=== PATIENT | female | born 1965 | race Caucasian/White ===

== ENCOUNTER → 2017-05-19 | Outpatient (CLI) | payer OTHER ==
--- NOTE | 2017-05-19 16:56 | US ---
EXAMINATION TYPE: US kidneys/renal and bladder DATE OF EXAM: 05/19/2017 COMPARISON: NONE CLINICAL HISTORY: R31.29 Microscopic hematuria. EXAM MEASUREMENTS: Right Kidney: 13.0 x 6.4 x 5.3 cm Left Kidney: 11.6 x 5.1 x 5.8 cm *Technical limitations due to patient's body habitus and large amount of overlying bowel content Right Kidney: visualized portions show no evidence of hydronephrosis Left Kidney: visualized portions show no evidence of hydronephrosis Bladder: not fully distended Bilateral Jets seen: no Incidental finding: cholelithiasis IMPRESSION: No evidence of renal mass or obstruction. Urinary bladder appears within normal limits.
== END | disposition home or self-care (01) ==
LOC: RADUSWWP 16:22
PROVIDERS: ATTEND Family Medicine
DX: R31.29 Other microscopic hematuria (principal)
CPT/HCPCS: 76770

== ENCOUNTER → 2018-05-24 | Outpatient (CLI) | payer OTHER ==
--- NOTE | 2018-05-26 13:21 | MM ---
Reason for exam: screening (asymptomatic). Last mammogram was performed 2 years ago. History: Patient is postmenopausal. Family history of breast cancer in sister at age 32. Physical Findings: A clinical breast exam by your physician is recommended on an annual basis and results should be correlated with mammographic findings. MG Screening Mammo w CAD Bilateral CC and MLO view(s) were taken. Prior study comparison: May 12, 2016, bilateral MG screening mammo w CAD. May 08, 2015, bilateral MG screening mammo w CAD. No significant changes when compared with prior studies. ASSESSMENT: Benign, BI-RAD 2 RECOMMENDATION: Routine screening mammogram of both breasts in 1 year.
== END | disposition home or self-care (01) ==
LOC: RADMAMWWP 13:32
PROVIDERS: ATTEND Family Medicine
DX: Z12.31 Encounter for screening mammogram for malignant neoplasm of breast (principal)
CPT/HCPCS: 77067

== ENCOUNTER → 2018-06-15 | Outpatient (CLI) | payer OTHER | END | disposition home or self-care (01) | LOC: LABPAT 13:16 | PROVIDERS: ATTEND Orthopaedic Surgery | DX: Z01.812 Encounter for preprocedural laboratory examination (principal) | CPT/HCPCS: 87070 ==

== ENCOUNTER 2018-06-27 07:26 | Inpatient (IN) | payer OTHER ==
[2018-06-20 10:10] VITALS: BMI 43.5
--- NOTE | 2018-06-26 21:48 | HP ---
HISTORY AND PHYSICAL DATE OF SURGERY: 06/27/2018 Darling Fenton is a 52-year-old patient seen with symptomatic right knee osteoarthritis. After treatment options were discussed, she elected to proceed with right total knee arthroplasty. Consent regarding the procedure was obtained. Medical clearance was provided by . PAST MEDICAL HISTORY: Hyperlipidemia, hypertension, edp-xmvtrzd-akpspzmak diabetes. PAST SURGICAL HISTORY: Tubal ligation, section. DAILY MEDICATIONS: Aspirin, atorvastatin, benazepril, gabapentin, sertraline. ALLERGIES: None reported. SOCIAL HISTORY: Patient currently smokes 1/2 pack cigarettes daily. PHYSICAL EXAMINATION: Physical evaluation of right knee: Range of motion is negative 2 to 110 degrees. Tenderness medial and lateral joint lines. Positive medial Jaja's. Crepitance medial and patellofemoral compartments with range of motion. Pain with patellofemoral compression. Ligaments are stable. Hip rotation is without pain. Distal neurovascular exam is intact. RADIOGRAPHS: Radiographs of the right knee reveal severe osteoarthritic changes. IMPRESSION: 1. Right knee osteoarthritis. 2. Hypertension. 3. Hyperlipidemia. 4. Kzd-uwcclyj-tujvjxtph diabetes. PLAN: Right total knee arthroplasty. MMODL / IJN: [id number] /
[~2018-06-27 07:26] MED LIST: ACETAMINOPHEN TAB 500 MG TAB PO ONE; DEXAMETHASONE SOD PHOSPHATE 10 MG/ML 1 ML VIAL IV ONE; LIDOCAINE 1% 20 ML VIAL (10MG/ML) FOR IV START INTRADERMA PRN; MELOXICAM 7.5 MG TAB PO ONE; MIDAZOLAM 2 MG/2 ML VIAL IV PRN; ONDANSETRON 4 MG/2 ML VIAL IVP ONE; TRANEXAMIC ACID 1,000 MG in SODIUM CHLORIDE 0.9% 50 ML IVPB ONE; ceFAZolin IN SWFI 2 GM/20 ML SYRINGE IVP ONE; fentaNYL (PF) 50 MCG/ML 2 ML AMP IV PRN
[2018-06-27] MEDS: LACTATED RINGERS 1,000 ML IV SCH ×2 (08:46→23:46)
[2018-06-27 08:52] LABS: Glucose,Whole Blood 125 mg/dL (75-99)
[2018-06-27] MEDS ORDERED: ROPIVACAINE 246.25 MG, EPINEPHrine 0.5 MG, KETOROLAC 30 MG, cloNIDine HCL/PF 80 MCG, WA... MISCELLANE ONE ×5 (09:03)
[2018-06-27] MEDS ORDERED: PROPOFOL 10 MG/ML 20 ML VIAL IV ONE (09:52)
[2018-06-27] MEDS ORDERED: MIDAZOLAM 2 MG/2 ML VIAL ONE (09:52)
[2018-06-27] MEDS ORDERED: fentaNYL (PF) 50 MCG/ML 2 ML AMP ONE (09:52)
[2018-06-27] MEDS ORDERED: SODIUM CHLORIDE 0.9% 100 ML BAG ONE (09:52)
[2018-06-27] MEDS ORDERED: TRANEXAMIC ACID 1,000 MG/10 ML VIAL ONE (09:52)
[2018-06-27] MEDS ORDERED: ceFAZolin 3,000 MG in SODIUM CHLORIDE 0.9% IRRIGATIO 3,000 ML IRRIGATION ONE (10:30)
[2018-06-27] MEDS ORDERED: ROPIVACAINE 1,100 MG, SODIUM CHLORIDE 0.9% 500 ML 330 ML MISCELLANE PRN ×2 (10:48)
--- NOTE | 2018-06-27 10:54 | P.ONQ ---
Anesthesiology Proc Note - PNB - Peripheral Nerve Block Performed Right Adductor Canal Infusion Time Out Performed: Yes Procedure Start Time: 09:00 Procedure Stop Time: 09:12 Indication: Acute Post-Operative Pain, Requested by physician Sedation Type: Sedate with meaningful contact maintained Preparation: Sterile Dressing Position: Supine Catheter Depth at Skin (cm): 4 Catheter: Indwelling Needle Types: On-Q Needle Size: 100mm (4") Needle Gauge: 20 Technique: Ultrasound Injectate: 0.5% Ropivacaine (see comment for volume) Blood Aspirated: No Pain Paresthesia on Injection Noted: No Resistance on Injection: Normal Events: Uneventful and Well Tolerated (20ml ropivicaine 0.5% infiltrated)
--- NOTE | 2018-06-27 11:47 | P.OP ---
Date of Procedure: 06/27/18 Preoperative Diagnosis: Right knee osteoarthritis Postoperative Diagnosis: Right knee osteoarthritis Procedure(s) Performed: Right total knee arthroplasty Implants: 1. Depuy attune size 5 narrow right cruciate retaining cemented femur 2. Depuy attune persona size 4 fixed cemented tibial baseplate 3. Depuy attune 5 mm fixed bearing cruciate retaining polyethylene tibial insert 4. Depuy attune 35 mm all polyethylene cemented patella Anesthesia: regional (Adductor canal catheter), local, spinal Surgeon: Louis Salazar Prenatal Nurse #1: Mason Solis Estimated Blood Loss (ml): 60 Pathology: other (Bone) Condition: stable Disposition: PACU Indications for Procedure: 52-year-old patient seen with symptomatically right knee osteoarthritis. After having treatment options discussed, she elected to proceed with right total knee arthroplasty. Operative Findings: See description of procedure Description of Procedure: Patient was taken to the operative suite after having an adductor canal catheter placed by the department of anesthesia for postoperative pain control. Patient underwent a spinal anesthetic by the department of anesthesia. Patient was given preoperative IV intake antibiotics and TXA. A well-padded tourniquet was placed about the right lower extremity. The lower extremity was then prepped and draped in the normal sterile orthopedic fashion. The extremity was elevated, a tourniquet was insufflated to 300. A standard anterior incision was made sharply through skin. Dissection was taken down through the subcutaneous soft tissues down to the extensor mechanism. A medial arthrotomy was performed, patella was everted and knee was flexed. There was advanced osteoarthritis noted. I introduced my distal intramedullary femoral drill. I then introduced the distal femoral cutting jig. Yasir WORLEY secured the cutting jig with 2 pins. I held retractors in position while Yasir WORLEY performed the distal femoral resection through the guide area we now removed her distal femoral cutting guide. We now placed our 4-in-1 femoral cutting block and positioned and it was secured with 2 pins by Yasir WORLEY while I held the block in position. The distal femoral finishing was now completed. A proximal tibial cutting guide was positioned. I held the guide in the appropriate position with both hands well Yasir WORLEY inserted stabilizing pins into the guide. Proximal tibial cut was made. We now placed a trial femoral component into position, along with an appropriate size tibial tray and insert. We now took the knee through range of motion and had full extension good flexion and good overall soft tissue balance noted. The patella was everted and stabilized with 2 towel clips held by Yasir WORLEY while I performed a flush with patellar quad tendon utilizing a fresh sawblade. We templated the patella, appropriate drill holes were made. An appropriate trial patella was positioned, knee was taken through full range of motion with the patella tracking very nicely. The trial patella was removed. Drill holes were made through the femoral component. All trial components were removed after marking off the appropriate rotation of the tibia. Retractors were now positioned along the proximal tibia. An appropriate keel punch was made with the appropriate size tibial guide by myself on Yasir WORLEY assisted by holding retractors. At this point appropriate size implants were chosen and opened. The joint was irrigated copiously with pulse lavage mechanical irrigation. The posterior capsule was infiltrated with local analgesic. The wound was irrigated with pulse lavage mechanical irrigation. We mixed antibiotic methylmethacrylate. We placed the knee into flexion. We placed multiple retractors assisted by Yasir WORLEY to expose the proximal tibia. Once the methyl methacrylate was ready, the tibial component was cemented into place removing any excess methylmethacrylate form by both myself and Yasir WORLEY. The femoral component was cemented into place removing the removing any excess methylmethacrylate performed by both myself and Yasir WORLEY. We then inserted the appropriate size polyethylene tibial insert. We made sure that it was locked into position. We took the knee into full extension, and then back in a flexion making sure we had removed any excess methylmethacrylate. The patellar component was then cemented down and secured with clamp. Excess methylmethacrylate removed. We kept the knee in full extension, patellar clamp in position until methylmethacrylate had hardened. Once it had hardened the patellar clamp was removed. The knee was taken through full range of motion. The patella tracked nicely. There was good soft tissue balancing. The tourniquet was now released. Additional hemostasis was achieved via electrocautery. A second gram of TXA was given. The wound again was irrigated with pulse lavage mechanical irrigation. The superficial soft tissues were infiltrated local analgesic. The extensor mechanism was repaired with Vicryl. We checked the repair with range of motion and it was stable. The subcutaneous soft tissues were repaired with Vicryl in layers. The skin was approximated with pernio/Dermabond. Sterile dressings were applied followed by loose web roll and Walter bandage. The patient was transferred to a bed, and taken to recovery in stable and satisfactory condition. Yasir WORLEY assisted with this complex procedure.
[2018-06-27] MEDS ORDERED: HYDROcodone/APAP 5-325MG 1 EACH TAB PO PRN (11:52)
[2018-06-27] MEDS ORDERED: HYDROmorphone 1 MG/ML 1 ML SYRINGE IVP PRN ×3 (11:52)
[2018-06-27] MEDS ORDERED: hydrOXYzine PAMOATE 25 MG CAP PO PRN (11:52)
[2018-06-27] MEDS ORDERED: NALOXONE 0.4 MG/ML 1 ML VIAL IV PRN (11:52)
[2018-06-27] MEDS ORDERED: ONDANSETRON 4 MG/2 ML VIAL IVP PRN (11:52)
--- NOTE | 2018-06-27 12:45 | XR ---
EXAMINATION TYPE: XR knee limited RT DATE OF EXAM: 06/27/2018 CLINICAL HISTORY: Postoperative evaluation Two views of the right knee are submitted. Identified are changes of total knee arthroplasty with femoral and tibial components appearing well seated. Postsurgical soft tissue changes are noted. Alignment is anatomic.
--- NOTE | 2018-06-27 15:35 | P.CONS ---
History of Present Illness - Reason for Consult Consult date: 06/27/18 Medical management of hypertension and COPD, obstructive sleep apnea hyperl Requesting physician: Louis Salazar - Chief Complaint Medical management - History of Present Illness The patient is a 52-year-old obese female was admitted to Dr. Bolaños orthopedic service and is currently postop day #0 status post right total knee arthroplasty secondary to severe right knee osteoarthritis, were consulted for medical management for patient's chronic medical conditions including essential hypertension, anxiety depression, COPD, obstructive sleep apnea on CPAP therapy at 11 cm of H20 pressure and dyslipidemia, CHF unknown type The patient reports mild right anterior knee pressure and has limited range of motion due to pain. She otherwise has no complaints, she denies chest pain, shortness of breath, cough, lightheadedness, dizziness, focal weakness, or significant lower extremity swelling. Patient does have a long history of smoking currently smokes a pack per day, she denied needing any nicotine patch. The patient reported that she did not take her morning meds today. Review of records indicates the patient is receiving perioperative antibiotics with cefazolin and also received spinal and local anesthesia Review of Systems Pertinent positives per HPI, all other review of systems otherwise negative Past Medical History Past Medical History: Hyperlipidemia, Hypertension Additional Past Medical History / Comment(s): Neuropathy bilateral legs, Restless Leg Syndrome, CPAP use, hx CHF X1 early , hx pneumonia X2, last 10 yrs ago, "borderline Diabetic, not on any medications, not checking sugars or doing anything for it." History of Any Multi-Drug Resistant Organisms: None Reported Past Surgical History: Section, Tubal Ligation Additional Past Surgical History / Comment(s): cleft lip and palate, ELIZA carpal tunnel Past Anesthesia/Blood Transfusion Reactions: No Reported Reaction Past Psychological History: Anxiety, Depression Smoking Status: Current every day smoker Past Alcohol Use History: None Reported, Rare Additional Past Alcohol Use History / Comment(s): Has been smoking 35 yrs, 1/2 PPD or less. Past Drug Use History: None Reported - Past Family History Mother Family Medical History: Cancer, Deep Vein Thrombosis (DVT) Sister(s) Family Medical History: Cancer Additional Family Medical History / Comment(s): Breast cancer with Mets Brother(s) Family Medical History: Diabetes Mellitus, Hyperlipidemia, Hypertension Additional Family Medical History / Comment(s): Pacemaker Medications and Allergies Home Medications Medication Instructions Recorded Confirmed Type Albuterol Nebulized (Conc) 1 applicate INHALATION QID PRN 07/14/14 06/27/18 History [Ventolin Nebulized (Conc)] Aspirin 325 mg PO 1300 07/14/14 06/20/18 History Benazepril [Lotensin] 20 mg PO 1300 07/14/14 06/20/18 History Melatonin 5 mg PO HS 07/14/14 06/20/18 History Sertraline HCl 100 mg PO 1300 07/14/14 06/20/18 History Albuterol Inhaler [Ventolin Hfa 1 - 2 puff INHALATION RT-Q6H PRN 06/20/18 History Inhaler] Atorvastatin [Lipitor] 40 mg PO HS 06/20/18 06/20/18 History Gabapentin [Neurontin] 100 mg PO BID 06/20/18 06/20/18 History Gabapentin [Neurontin] 200 mg PO HS 06/20/18 06/20/18 History Ibuprofen 800 mg PO BID PRN 06/20/18 06/20/18 History Vitamin D 1.25 mg PO MO 06/20/18 06/20/18 History rOPINIRole HCL 0.5 mg PO HS 06/20/18 06/20/18 History Metoprolol Tartrate [Lopressor] 25 mg PO ONCE 06/27/18 06/27/18 History Allergies Allergy/AdvReac Type Severity Reaction Status Date / Time morphine Allergy Unknown Verified 06/27/18 08:17 Physical Exam Vitals: Vital Signs Temp Pulse Pulse Resp BP BP Pulse Ox 06/27/18 14:54 97.6 F 90 16 158/71 96 06/27/18 14:15 70 16 99/58 93 L 06/27/18 13:42 67 16 91/55 93 L 06/27/18 12:45 65 14 102/59 92 L 06/27/18 12:30 69 16 97/51 93 L 06/27/18 12:15 72 16 98/53 95 06/27/18 12:03 97.2 F L 73 16 102/54 92 L 06/27/18 09:46 119/63 06/27/18 09:37 73 95 06/27/18 08:47 95 06/27/18 08:08 974 F H 94 20 153/69 Intake and Output 06/27/18 06/27/18 06/27/18 06:59 14:59 22:59 Intake Total 801 Output Total 60 300 Balance 741 -300 Intake: IV 801 Output: Urine 300 Estimated Blood Loss 60 Other: Voiding Method Toilet Weight 111.584 kg Constitutional: No acute distress, conversant, pleasant Eyes: Anicteric sclerae, moist conjunctiva, no lid-lag, PERRLA ENMT: NC/AT,Oropharynx clear, no erythema, exudates Neck:Supple, FROM, no masses, or JVD, No carotid bruits; No thyromegaly Lungs: Clear to auscultation, Clear to percussion, Normal respiratory effort, no accessory muscle use Cardiovascular: Heart regular in rate and rhythm, No murmurs, gallops, trace bilateral lower pitting extremity edema Abdominal: Soft Nontender, nom distended, no guarding, no rebound or rigidity, Normoactive bowel sounds No hepatomegaly, No splenomegaly, No palpable mass No abdominal wall hernia noted Skin: Normal temperature, tone, texture, turgor, No induration No subcutaneous nodules, No rash, lesions, No ulcers Extremities: Right knee bandaged, able to wiggle, toes neurovascularly intact, Psychiatric: Alert and oriented to person, place and time, Appropriate affect Intact judgement Neuro: Muscles Strength 5/5 in all 4 extremities, Sensation to light touch grossly present throughout, Cranial nerves II-XII grossly intact. No focal sensory deficits Results Labs: Abnormal Lab Results - Last 24 Hours (Table) 06/27/18 Range/Units 08:38 POC Glucose (mg/dL) 125 H (75-99) mg/dL Assessment and Plan (1) COPD (chronic obstructive pulmonary disease) Current Visit: Yes Status: Acute Code(s): J44.9 - CHRONIC OBSTRUCTIVE PULMONARY DISEASE, UNSPECIFIED SNOMED Code(s): 14154712 (2) Essential hypertension Current Visit: Yes Status: Acute Code(s): I10 - ESSENTIAL (PRIMARY) HYPERTENSION SNOMED Code(s): 26489813 (3) Obstructive sleep apnea Current Visit: Yes Status: Acute Code(s): G47.33 - OBSTRUCTIVE SLEEP APNEA ( ADULT) (PEDIATRIC) SNOMED Code(s): 82116928 (4) CHF (congestive heart failure) Current Visit: Yes Status: Acute Code(s): I50.9 - HEART FAILURE, UNSPECIFIED SNOMED Code(s): 39840211 (5) Depression with anxiety Current Visit: Yes Status: Acute Code(s): F41.8 - OTHER SPECIFIED ANXIETY DISORDERS SNOMED Code(s): 61396867 (6) Hyperlipidemia Current Visit: Yes Status: Acute Code(s): E78.5 - HYPERLIPIDEMIA, UNSPECIFIED SNOMED Code(s): 52802582 (7) Osteoarthritis of right knee Current Visit: Yes Status: Acute Code(s): M17.11 - UNILATERAL PRIMARY OSTEOARTHRITIS, RIGHT KNEE SNOMED Code(s): 278935590706885 (8) Status post total right knee replacement Current Visit: Yes Status: Acute Code(s): Z96.651 - PRESENCE OF RIGHT ARTIFICIAL KNEE JOINT SNOMED Code(s): 4530484945481 Plan: The patient is admitted for right total knee arthroplasty secondary to severe right knee osteoarthritis hence we'll defer to primary team regarding postop analgesic therapy. she is doing well postop. Initially the patient was borderline hypotensive but was asymptomatic likely secondary to spinal anesthesia, most recent blood pressure indicates that its's trending up hence we 'll plan to proceed to restart all of her home medications now. Patient COPD, and CHF unknown type seems to be stable without any acute exacerbation at this time. The patient is able to use her home CPAP while sleeping at night. We'll continue to follow her clinical course I Appreciate opportunity the to be involved ongoing care of this patient. For further questions or concerns please do not hesitate to contact the sound inpatient team
[2018-06-27] MEDS ORDERED: ALBUTEROL NEBULIZED 2.5 MG/3 ML INHALATION PRN (15:36)
[2018-06-27] MEDS: GABAPENTIN 100 MG CAP PO SCH ×2 (17:40→22:07)
[2018-06-27] MEDS: ALBUTEROL NEBULIZED 2.5 MG/3 ML INHALATION PRN (21:48)
[2018-06-27] MEDS: SENNOSIDES-DOCUSATE SODIUM 1 EACH TAB PO SCH (22:06)
[2018-06-27] MEDS: traMADol 50 MG TAB PO PRN (22:06)
[2018-06-27] MEDS: ceFAZolin IN SWFI 2 GM/20 ML SYRINGE IVP SCH (22:08)
[2018-06-27] MEDS: MELATONIN 5 MG TABLET PO SCH (22:08)
[2018-06-27] MEDS: ENOXAPARIN 30 MG/0.3 ML SYRINGE SQ SCH (22:08)
[2018-06-27] MEDS: ATORVASTATIN 40 MG TAB PO SCH (22:17)
[2018-06-28] MEDS: ceFAZolin IN SWFI 2 GM/20 ML SYRINGE IVP SCH (04:53)
[2018-06-28] MEDS: HYDROcodone/APAP 5-325MG 1 EACH TAB PO PRN ×3 (04:53→23:44)
[2018-06-28 07:45] LABS: Basophils % (A) 0 %; Eosinophils # (A) 0.1 k/uL (0-0.7); Eosinophils % (A) 1 %; HCT 33.4 % (34.0-46.0); HGB 11.4 gm/dL (11.4-16.0); Lymphocytes # (A) 1.6 k/uL (1.0-4.8); Lymphocytes % (A) 17 %; MCH 30.9 pg (25.0-35.0); MCHC 34.3 g/dL (31.0-37.0); MCV 90.1 fL (80.0-100.0); Mean Platelet Volume 7.1; Monocytes % (A) 10 %; Neutrophils # (A) 6.9 k/uL (1.3-7.7); Neutrophils % (A) 71 %; Platelet Count 205 k/uL (150-450); RDW 12.6 % (11.5-15.5); WBC 9.8 k/uL (3.8-10.6)
[2018-06-28] MEDS: ALBUTEROL NEBULIZED 2.5 MG/3 ML INHALATION SCH ×3 (08:03→20:50)
[2018-06-28] MEDS: INSULIN ASPART 100 UNIT/ML 1 ML 10 ML VIAL SQ SCH ×4 (08:15→21:12)
[2018-06-28] MEDS: GABAPENTIN 100 MG CAP PO SCH ×3 (08:36→21:12)
[2018-06-28] MEDS: MELOXICAM 7.5 MG TAB PO SCH (08:36)
[2018-06-28] MEDS: ENOXAPARIN 30 MG/0.3 ML SYRINGE SQ SCH ×2 (08:36→21:12)
[2018-06-28 08:38] LABS: Glucose,Whole Blood 176 mg/dL (75-99)
--- NOTE | 2018-06-28 09:27 | CONS ---
CONSULTATION REASON FOR CONSULTATION: Advice regarding bronchitis and hypertension and other medical issues by Orthopedic Surgery. HISTORY OF PRESENT ILLNESS: This is a 52-year-old with past medical history of hypertension, hyperlipidemia, neuropathy and and history of neuropathy, history of CHF, history of pneumonia, history of diabetes being followed by Dr. Linda De Leon in the outpatient setting, underwent right total knee arthroplasty by Dr. Salazar. The patient has some minimal wheezing at this time. There is no history of fever, rigors. No headache loss of consciousness or seizures at this time. PAST MEDICAL HISTORY: History of hypertension, hyperlipidemia, history of neuropathy, anxiety, depression. MEDICATIONS PRIOR TO ADMISSION INCLUDE: 1. Requip 0.5 mg q.h.s. 2. Vitamin D 1.25 mg p.o. Wednesday. 3. Zoloft 100 mg p.o. daily. 4. Lopressor 25 mg once next melatonin 5 mg q.h.s., ibuprofen 480 mg b.i.d. p.r.n. 5. Neurontin 100 mg p.o. b.i.d. 200 mg q.h.s., Lotensin 20 mg p.o. 6. Lipitor 40 mg q.h.s. aspirin 310 mg p.o. daily. 7. Ventolin 1 puff q.i.d. p.r.n. ALLERGIES: Morphine family. FAMILY HISTORY: Of cancer, DVT, breast cancer with METS. SOCIAL HISTORY: History of smoking currently. No history of alcohol intake. REVIEW OF SYSTEMS: ENT: No diminished hearing, no diminished nutrition. CARDIOVASCULAR: No angina, as mentioned earlier. GI: No nausea. : No dysuria. NERVOUS SYSTEM: No numbness or weakness. ALLERGY/IMMUNOLOGY: No asthma or hay fever. MUSCULOSKELETAL: As mentioned earlier. HEMATOLOGY: No history anemia. ENDOCRINE: No history of diabetes hypothyroidism. CONSTITUTIONAL: As mentioned earlier. DERMATOLOGY: As mentioned earlier. PSYCHIATRY: As mentioned earlier. PHYSICAL EXAMINATION: Alert and oriented x3. Pulse 76, blood pressure 109/63, respirations 16, temperature 98 degrees, pulse ox 94% on room air. HEENT: Conjunctivae normal. Oral mucosa moist. Neck is no jugular venous distention. No lymph node enlargement. CARDIOVASCULAR SYSTEM: S1, S2. RESPIRATORY: Breath sounds diminished at the bases, few scattered rhonchi, no crackles. ABDOMEN: Soft, nontender. No mass. LEGS: Status post knee arthroplasty. NERVOUS SYSTEM: Higher functions as mentioned earlier. Moves all 4 limbs. No focal motor deficits. LYMPHATICS: No lymph node enlargement. SKIN: No ulcer, rash or bleeding. LABS: At this time shows glucose 125, the preop labs are WBC 10.7, the coags are normal and chemistry shows glucose 125. ASSESSMENT: 1. Status post right total knee arthroplasty. 2. Bronchospasm, possibly chronic obstructive pulmonary disease. 3. Hypertension. 4. Hyperlipidemia. 5. History of nicotine dependence. 6. History of peripheral neuropathy. 7. History of congestive heart failure. 8. History of pneumonia. 9. History of borderline diabetes mellitus. 10.Anxiety, depression. RECOMMENDATION: In this 52-year-old woman who presented with multiple complex medical issues, will monitor the patient closely, continue with the current medication and symptomatic treatment. Otherwise, at this time I would also recommend resume the home medications, bronchodilators. I would recommend bronchodilators t.i.d. and p.r.n. Otherwise I would also recommend Accu-Cheks a.c. and at bedtime, scale also. Will follow the patient closely with you and the patient may be asked to follow up with the primary physician after discharge. MMODL / IJN: [id number] /
[2018-06-28] MEDS: traMADol 50 MG TAB PO PRN ×2 (10:05→17:29)
[2018-06-28 11:56] LABS: Glucose,Whole Blood 105 mg/dL (75-99)
[2018-06-28] MEDS: ASPIRIN 325 MG TAB PO SCH (12:27)
[2018-06-28] MEDS: SERTRALINE 100 MG TAB PO SCH (12:27)
[2018-06-28] MEDS: MULTIVITAMINS, THERA 1 EACH TAB PO SCH (12:27)
[2018-06-28] MEDS: LISINOPRIL 20 MG TAB PO SCH (12:37)
[2018-06-28] MEDS ORDERED: HYDROmorphone 2 MG TAB PO PRN ×2 (13:17→13:18)
[2018-06-28] MEDS ORDERED: HYDROmorphone 4 MG TABLET PO PRN (13:18)
--- NOTE | 2018-06-28 13:23 | P.PN ---
Progress Note - Text Progress Note Date: 06/28/18 Patient seen laying in bed comfortably. Patient is experiencing some discomfort but controlled with pain medication. Incision stable. Distal neurovascular exam intact. Negative Zeyad Bonilla. Impression: status post right total knee arthroplasty Plan: Pain management Increased activities as tolerated Physical therapy Discharge plan tomorrow
[2018-06-28 13:24] LABS: Hemoglobin A1C 5.8 % (4.0-6.0)
[2018-06-28] MEDS: ALBUTEROL NEBULIZED 2.5 MG/3 ML INHALATION PRN (13:40)
[2018-06-28 17:20] LABS: Glucose,Whole Blood 112 mg/dL (75-99)
[2018-06-28 20:13] LABS: Glucose,Whole Blood 127 mg/dL (75-99)
[2018-06-28] MEDS: ATORVASTATIN 40 MG TAB PO SCH (21:12)
[2018-06-28] MEDS: SENNOSIDES-DOCUSATE SODIUM 1 EACH TAB PO SCH (21:13)
[2018-06-28] MEDS: MELATONIN 5 MG TABLET PO SCH (21:13)
[2018-06-28] MEDS: LACTATED RINGERS 1,000 ML IV SCH (23:28)
[2018-06-28 23:48] VITALS: TEMP 99.3
[2018-06-29 07:00] LABS: Glucose,Whole Blood 130 mg/dL (75-99)
[2018-06-29] MEDS: INSULIN ASPART 100 UNIT/ML 1 ML 10 ML VIAL SQ SCH ×2 (07:01→13:11)
[2018-06-29] MEDS: ALBUTEROL NEBULIZED 2.5 MG/3 ML INHALATION SCH ×2 (07:27→12:27)
[2018-06-29] MEDS: GABAPENTIN 100 MG CAP PO SCH (07:28)
[2018-06-29] MEDS: MELOXICAM 7.5 MG TAB PO SCH (07:28)
[2018-06-29] MEDS: HYDROcodone/APAP 5-325MG 1 EACH TAB PO PRN (07:29)
[2018-06-29] MEDS: ENOXAPARIN 30 MG/0.3 ML SYRINGE SQ SCH (07:33)
[2018-06-29 07:42] VITALS: BP 125/74; PULSE 94; RESP 12
--- NOTE | 2018-06-29 10:01 | P.PN ---
Subjective Progress Note Date: 06/29/18 Principal diagnosis: Status post right total knee arthroplasty Patient seen today resting her hospital bed, she appears comfortable. She is ambulating well with therapy. Her pain is well-controlled. Objective - Vital Signs Vital signs: Vital Signs Temp 99.3 F 06/29/18 07:00 Pulse 92 06/29/18 07:39 Resp 12 06/29/18 07:00 BP 125/74 06/29/18 07:00 Pulse Ox 90 L 06/29/18 07:00 Intake & Output 06/28/18 06/29/18 06/29/18 18:59 06:59 18:59 Intake Total 676 360 Balance 676 360 Intake: Oral 676 360 Other: Voiding Method Toilet Toilet # Voids 1 2 - Exam Right lower extremity: Incision is clean, dry, and intact. The exofin tape in good condition. There is minimal soft tissue swelling and ecchymosis surrounding the medial and lateral aspects of the incision. Calf is soft, no tenderness with palpation. Plantar flexion, dorsiflexion, EHL, FHL are intact. Sensory exam to light touch throughout the extremity is intact, dorsal pedis pulses 2+. - Labs CBC & Chem 7: 06/28/18 06:40 Labs: Abnormal Lab Results - Last 24 Hours (Table) 06/28/18 06/28/18 06/28/18 Range/Units 11:39 17:07 20:01 POC Glucose (mg/dL) 105 H 112 H 127 H (75-99) mg/dL 06/29/18 Range/Units 06:48 POC Glucose (mg/dL) 130 H (75-99) mg/dL Assessment and Plan Plan: Assessment: Postop day #2 status post right total knee arthroplasty Plan: Pain control, we'll discharge home on oral medication GI and DVT prophylaxis, aspirin 325 mg daily Wound care instructions discussed Home physical therapy and nursing after discharge Medical recommendations Discharge planning: Patient discharged home today Time with Patient: Less than 30
--- NOTE | 2018-06-29 10:08 | P.DS ---
Providers Date of admission: 06/27/18 07:26 Expected date of discharge: 06/29/18 Attending physician: Louis Salazar Consults: 06/27/18 11:52 Consult Physician Routine Consulting Provider: Linda De Leon Reason/Comments: Medical management Do you want consulting provider notified?: Yes 06/27/18 14:44 Consult Physician Routine Consulting Provider: Austin Meredith Consult Reason/Comments: medical mangament Do you want consulting provider notified?: Yes Primary care physician: Linda De Leon Hospital Course: Date of admission: 06/27/2018 Date of discharge: 06/29/2018 Admission diagnosis: Status post right total knee arthroplasty Discharge diagnosis: Same Attending physician: Dr. Salazar Surgical procedures: Right total knee arthroplasty Brief history: Patient is a 52-year-old female with a history of progressive primary right knee osteoarthritis. At this point patient has failed conservative treatment measures and has opted to proceed with a elective right total knee arthroplasty. Hospital course: Details of patient's surgery can be found in operative report. Patient tolerated the procedure well and was subsequently transported to orthopedic floor. Patient's orthopeidc and medical care was provided daily. Patient had daily laboratory tests performed for evaluation of overall blood counts. Patient had daily physical therapy to include strengthening range of motion as well as education with walker ambulation. Patient had daily CPM usage as part of their physical therapy program. Patient was treated with Lovenox for their postoperative DVT prophylaxis during their inpatient stay. Patient was noted to have a relatively uneventful postoperative course. Patient reported satisfactory pain control with oral pain medications by postoperative day 0. Patient showed satisfactory progress with physical therapy. Patient moved steadily through the program and had no difficulty meeting the goals by postoperative day 2. Given patient's otherwise satisfactory course and having met physical therapy goals, plan is to discharge patient home on postoperative day 2. Discharge condition/disposition: Patient will be discharged home in stable condition. Discharge medications: Instructions are given on resumption of patient's normal daily medications per primary care recommendation, in addition patient will be prescribed [place] 5 mg/325 mg, tramadol 50 mg, Colace 100 mg. Discharge instructions: 1. Wound care and infection precautions, keep incision dry and covered while showering, no lotions, creams, moisturizers. No soaking, tubs, pools, hottubs. Do not scrub over the incision. 2. Weight-bear as tolerated with walker / cane until follow-up. 3. Ice and elevate when necessary. Do not exceed 20 minutes per hour with ice pack. 4. Utilize compression sleeve until seen at first follow up appointment. 5. Visiting nursing care. 6. Home physical therapy including home CPM. 7. Pain meds and anticoagulants per prescription. 8. Pain medication has potential to cause constipation. Increase oral fluid and fiber intake. Contact primary care provider if you have not had a bowel movement within 48 hours after discharge 9. No anti-inflammatory medication until discussed at first post operative visit, this including Motrin, Aleve, Mobic, Diclofenac. 10. Follow up in office at 2 weeks postop with Yasir Solis PA-C 11. Follow up with your primary care doctor 7-10 days after discharge. 12. Contact [facility] with any questions, . Procedures: Right total knee arthroplasty Patient Condition at Discharge: Good Plan - Discharge Summary Discharge Rx Participant: Yes New Discharge Prescriptions: New Docusate [Colace] 100 mg PO DAILY #30 capsule Hydrocodone/Acetaminophen [[place] 5-325] 1 - 2 each PO Q6HR PRN #40 tab PRN Reason: Pain traMADol HCl [Ultram] 50 mg PO Q6H PRN #28 tab PRN Reason: Pain No Action Sertraline HCl 100 mg PO 1300 Melatonin 5 mg PO HS Benazepril [Lotensin] 20 mg PO 1300 Aspirin 325 mg PO 1300 Albuterol Nebulized (Conc) [Ventolin Nebulized (Conc)] 1 puff INHALATION RT- QID PRN PRN Reason: Shortness Of Breath Atorvastatin [Lipitor] 40 mg PO HS Albuterol Inhaler [Ventolin Hfa Inhaler] 1 - 2 puff INHALATION RT-Q6H PRN PRN Reason: Shortness Of Breath rOPINIRole HCL 0.5 mg PO HS Vitamin D 1.25 mg PO MO Gabapentin [Neurontin] 200 mg PO HS@2200 Gabapentin [Neurontin] 100 mg PO BID@0900,1700 Ibuprofen 400 - 800 mg PO BID PRN PRN Reason: Pain Metoprolol Tartrate [Lopressor] 25 mg PO ONCE Discharge Medication List Albuterol Nebulized (Conc) [Ventolin Nebulized (Conc)] 1 puff INHALATION RT-QID PRN 11/08/14 [History] Aspirin 325 mg PO 1300 11/08/14 [History] Benazepril [Lotensin] 20 mg PO 1300 07/14/14 [History] Melatonin 5 mg PO HS 07/14/14 [History] Sertraline HCl 100 mg PO 1300 07/14/14 [History] Albuterol Inhaler [Ventolin Hfa Inhaler] 1 - 2 puff INHALATION RT-Q6H PRN [History] Atorvastatin [Lipitor] 40 mg PO HS 06/20/18 [History] Gabapentin [Neurontin] 100 mg PO BID@0900,1700 06/20/18 [History] Gabapentin [Neurontin] 200 mg PO HS@2200 06/20/18 [History] Ibuprofen 400 - 800 mg PO BID PRN 06/20/18 [History] Vitamin D 1.25 mg PO MO 06/20/18 [History] rOPINIRole HCL 0.5 mg PO HS 06/20/18 [History] Metoprolol Tartrate [Lopressor] 25 mg PO ONCE 06/27/18 [History] Docusate [Colace] 100 mg PO DAILY #30 capsule 06/29/18 [Rx] Hydrocodone/Acetaminophen [[place] 5-325] 1 - 2 each PO Q6HR PRN #40 tab 06/29/18 [Rx] traMADol HCl [Ultram] 50 mg PO Q6H PRN #28 tab 06/29/18 [Rx] Follow up Appointment(s)/Referral(s): [facility], [NON-STAFF] - Linda De Leon MD [Primary Care Provider] - 1 Week Mason Solis PAC [PHYSICIAN CUT PRESS OPERATOR] - 07/15/18 2:30 pm Activity/Diet/Wound Care/Special Instructions: [facility] - [facility] - [phone] - Please call once home to arrange delivery of CPM Orthopedic Discharge Instructions: 1. Wound care and infection precautions, keep incision dry and covered while showering, no lotions, creams, moisturizers. No soaking, pools, hot tubs. Do not scrub over incision. 2. Weight-bear as tolerated with walker / cane until follow-up. 3. Ice and elevate when necessary. Do not exceed 20 minutes per hour with ice pack. 4. Utilize compression sleeve until seen at first follow up appointment. 5. Pain meds and anticoagulants per prescription. 6. Pain medication has potential to cause constipation. Increase oral fluid and fiber intake. Contact primary care provider if you have not had a bowel movement within 48 hours after discharge. 7. No anti-inflammatory medication until discussed at first post operative visit, this including Motrin, Aleve, Mobic, Diclofenac. 8. Follow up in office at 2 weeks postop with Yasir Solis PA-C 9. Follow up with your primary care doctor 7-10 days after discharge. 10. Contact [facility] with any questions, . Discharge Disposition: HOME WITH HOME HEALTH SERVICES
--- NOTE | 2018-06-29 11:59 | P.PN ---
Progress Note - Text Anesthesia POD 2. Patient is status post right TKR under spinal anesthesia with a right adductor canal catheter placed for postoperative pain relief. With ropivacaine 0.2% running at 8 cc's per hour, the patient's VAS is (2, 4). Catheter site is clean dry and intact.
[2018-06-29 12:06] LABS: Glucose,Whole Blood 80 mg/dL (75-99)
[2018-06-29] MEDS: SERTRALINE 100 MG TAB PO SCH (13:11)
[2018-06-29] MEDS: MULTIVITAMINS, THERA 1 EACH TAB PO SCH (13:11)
[2018-06-29] MEDS: LISINOPRIL 20 MG TAB PO SCH (13:11)
[2018-06-29] MEDS: ASPIRIN 325 MG TAB PO SCH (13:13)
--- NOTE | 2018-06-29 18:35 | P.PN ---
Subjective Progress Note Date: 06/28/18 Progress note being dictated for Dr. Raman. Interval history: This 52-year-old female admitted with right knee osteoarthritis, bronchospasms, possibly COPD and multiple other medical issues. Status post right total knee arthroplasty, tolerated procedure well. Incentive spirometer up to 1500. Breathing easier today. Passing gas, no bowel movement. Pain controlled. Ambulating with PT, tolerating exertion well. Denies lightheadedness dizziness or focal deficits. Denies chest pain, palpitations or increasing shortness of breath. Objective - Vital Signs Vital signs: Vital Signs Temp 99.4 F 06/28/18 19:56 Pulse 90 06/28/18 19:58 Resp 17 06/28/18 19:56 BP 116/58 06/28/18 19:56 Pulse Ox 92 L 06/28/18 19:56 Intake & Output 06/28/18 06/28/18 06/29/18 06:59 18:59 06:59 Intake Total 676 360 Balance 676 360 Intake: Oral 676 360 Other: Voiding Method Toilet Toilet # Voids 1 1 - Exam PHYSICAL EXAM: VITAL SIGNS: As above GENERAL: Sitting up in bed, no acute distress HEENT: Conjunctivae normal. eyes normal. NECK: No JVD. No thyroid enlargement. No LNs CARDIOVASCULAR: S1, S2 muffled. No murmur RESPIRATION: Breath sounds diminished in the bases. Occasional scattered rhonchi, no crackles. ABDOMEN: Soft, nontender . No guarding. no masses palpable. LEGS: Status post knee arthroplasty PSYCHIATRY: Alert and oriented -3, mood and affect normal. NERVOUS SYSTEM: Cranial N 2-12 grossly normal. Moves all 4 limbs. No focal deficits. Skin: no ulcer, rash or bleeding - Labs CBC & Chem 7: 06/28/18 06:40 Labs: Abnormal Lab Results - Last 24 Hours (Table) 06/28/18 06/28/18 06/28/18 Range/Units 06:40 08:27 11:39 RBC 3.70 L (3.80-5.40) m/uL Hct 33.4 L (34.0-46.0) % POC Glucose (mg/dL) 176 H 105 H (75-99) mg/dL 06/28/18 Range/Units 17:07 RBC (3.80-5.40) m/uL Hct (34.0-46.0) % POC Glucose (mg/dL) 112 H (75-99) mg/dL Assessment and Plan Assessment: -Status post right total knee arthroplasty -Bronchospasm, possibly COPD -Hypertension -Hyperlipidemia -History of nicotine dependence Plan: Continue on current medication regime ,monitoring and symptomatic treatment. Maintain nebulized bronchodilators. Aggressive pulmonary toileting with incentive spirometer reinforced. GI and DVT prophylaxis in place. Pain management as per orthopedic surgery. The impression and plan of care has been dictated as directed. : I performed a history and examination of this patient, discussed the same with the dictator. I agree with the dictator's note ,documented as a scribe. Any additional findings or plans will be noted.
--- NOTE | 2018-06-29 18:38 | P.PN ---
Subjective Progress Note Date: 06/29/18 Progress note being dictated for Dr. Raman. Interval history: This 52-year-old female admitted with right knee osteoarthritis, bronchospasms, possibly COPD and multiple other medical issues. Status post right total knee arthroplasty, tolerated procedure well. Incentive spirometer up to 1500. Breathing easier today. Passing gas, no bowel movement. Pain controlled. Ambulating with PT, tolerating exertion well. Denies lightheadedness dizziness or focal deficits. Denies chest pain, palpitations or increasing shortness of breath. 06/29/2018 continues to do well, denies shortness of breath. Incentive spirometer up to 1500. Passing flatus, no bowel movement. Pain controlled. Ambulating, denies lightheadedness dizziness or focal deficits. Denies chest pain, palpitations. Objective - Vital Signs Vital signs: Vital Signs Temp 99.3 F 06/29/18 07:00 Pulse 92 06/29/18 07:39 Resp 12 06/29/18 07:00 BP 125/74 06/29/18 07:00 Pulse Ox 90 L 06/29/18 07:00 Intake & Output 06/28/18 06/29/18 06/29/18 18:59 06:59 18:59 Intake Total 676 360 Balance 676 360 Intake: Oral 676 360 Other: Voiding Method Toilet Toilet Toilet # Voids 1 2 3 - Exam PHYSICAL EXAM: VITAL SIGNS: As above GENERAL: Sitting up in bed, no acute distress HEENT: Conjunctivae normal. eyes normal. NECK: No JVD. No thyroid enlargement. No LNs CARDIOVASCULAR: S1, S2 muffled. No murmur RESPIRATION: Breath sounds diminished in the bases. Occasional scattered rhonchi, no crackles. ABDOMEN: Soft, nontender . No guarding. no masses palpable. LEGS: Status post knee arthroplasty PSYCHIATRY: Alert and oriented -3, mood and affect normal. NERVOUS SYSTEM: Cranial N 2-12 grossly normal. Moves all 4 limbs. No focal deficits. Skin: no ulcer, rash or bleeding - Labs CBC & Chem 7: 06/28/18 06:40 Labs: Abnormal Lab Results - Last 24 Hours (Table) 06/28/18 06/28/18 06/29/18 Range/Units 17:07 20:01 06:48 POC Glucose (mg/dL) 112 H 127 H 130 H (75-99) mg/dL Assessment and Plan Assessment: -Status post right total knee arthroplasty -Bronchospasm, possibly COPD -Hypertension -Hyperlipidemia -History of nicotine dependence -Atelectasis Plan: Continue on current medication regime ,monitoring and symptomatic treatment.Aggressive pulmonary toileting with incentive spirometer reinforced. Continue nebulized bronchodilators. Pain management as per orthopedic surgery. Discharge planning in progress today as per primary-orthopedic surgery. Follow-up with PCP in 1 week. The impression and plan of care has been dictated as directed. : I performed a history and examination of this patient, discussed the same with the dictator. I agree with the dictator's note ,documented as a scribe. Any additional findings or plans will be noted.
== END 2018-06-29 14:20 | disposition home health service (06) | DRG 470 ==
LOC: 2ORMAIN 07:26 → 4SSUR 14:38
PROVIDERS: ADMIT Orthopaedic Surgery; ATTEND Orthopaedic Surgery
PROC: 0SRC0J9 Replacement of Right Knee Joint with Synthetic Substitute, Cemented, Open Approach (ICD-10-PCS; principal; 2018-06-27 09:45)
DX: M17.11 Unilateral primary osteoarthritis, right knee (principal); Z68.41 Body mass index [BMI] 40.0-44.9, adult; E66.9 Obesity, unspecified; E78.5 Hyperlipidemia, unspecified; F17.210 Nicotine dependence, cigarettes, uncomplicated; G25.81 Restless legs syndrome; G47.33 Obstructive sleep apnea (adult) (pediatric); I11.0 Hypertensive heart disease with heart failure; I50.9 Heart failure, unspecified; J44.9 Chronic obstructive pulmonary disease, unspecified; J98.01 Acute bronchospasm; R73.03 Prediabetes; G62.9 Polyneuropathy, unspecified; E78.00 Pure hypercholesterolemia, unspecified; I45.10 Unspecified right bundle-branch block; F32.9 Major depressive disorder, single episode, unspecified; F41.9 Anxiety disorder, unspecified; Z79.899 Other long term (current) drug therapy; Z79.82 Long term (current) use of aspirin; Z87.730 Personal history of (corrected) cleft lip and palate; Z87.01 Personal history of pneumonia (recurrent); Z82.49 Family history of ischemic heart disease and other diseases of the circulatory system; Z83.3 Family history of diabetes mellitus; Z80.3 Family history of malignant neoplasm of breast
CPT/HCPCS: 83036; 85025; 88300; 94640

== ENCOUNTER → 2019-01-12 | Outpatient (CLI) | payer OTHER | END | disposition home or self-care (01) | LOC: LABPAT 14:53 | PROVIDERS: ATTEND Orthopaedic Surgery | DX: Z01.812 Encounter for preprocedural laboratory examination (principal) | CPT/HCPCS: 87070 ==

== ENCOUNTER 2019-01-16 07:51 | Inpatient (IN) | payer OTHER ==
--- NOTE | 2019-01-15 18:48 | HP ---
HISTORY AND PHYSICAL REASON FOR ADMISSION: Surgery scheduled for 01/16/2019 HISTORY OF PRESENT ILLNESS: Darling Fenton is a 53-year-old patient seen with symptomatic left knee osteoarthritis. We discussed options. She elected to proceed with left total knee arthroplasty. Consent regarding procedure was obtained. Medical clearance has been obtained from Dr. De Leon. PAST MEDICAL HISTORY: Hypertension, hyperlipidemia, hypothyroidism, asthma. PAST SURGICAL HISTORY: Bilateral tubal ligation, section, facial surgery, right total knee arthroplasty. DAILY MEDICATIONS: Atorvastatin, benazepril, gabapentin, Sertraline. ALLERGIES: None reported. SOCIAL HISTORY: Smokes half pack cigarettes daily. PHYSICAL EXAMINATION: Evaluation of the left knee range of motion 0-115 degrees. Tenderness along the lateral joint line. Crepitus along without patellofemoral compartments with range of motion. Pain with patellofemoral compression. Ligaments are stable. Hip rotation is without pain. Distal neurovascular exam is intact. RADIOGRAPHS: Radiographs of the left knee reveal severe lateral compartment osteoarthritis. IMPRESSION: 1. Left knee osteoarthritis. 2. Hypertension. 3. Hyperlipidemia. 4. Hypothyroidism. PLAN: Left total knee arthroplasty. Surgery is scheduled for 01/16/2019. MMODL / IJN: [id number] /
[~2019-01-16 07:51] MED LIST changes: -DEXAMETHASONE SOD PHOSPHATE 10 MG/ML 1 ML VIAL IV ONE; +LACTATED RINGERS 1,000 ML IV SCH; -MIDAZOLAM 2 MG/2 ML VIAL IV PRN; +TRANEXAMIC ACID 1,000 MG in SODIUM CHLORIDE 0.9% 100 ML IVPB ONE; -TRANEXAMIC ACID 1,000 MG in SODIUM CHLORIDE 0.9% 50 ML IVPB ONE
[2019-01-16] MEDS ORDERED: DEXAMETHASONE SOD PHOSPHATE 10 MG/ML 1 ML VIAL IV ONE (08:35)
[2019-01-16] MEDS ORDERED: MIDAZOLAM (PF) 2 MG/2 ML VIAL IVP ONE (08:54)
[2019-01-16] MEDS ORDERED: PROPOFOL 10 MG/ML 20 ML VIAL IV ONE (10:05)
[2019-01-16] MEDS ORDERED: fentaNYL (PF) 50 MCG/ML 2 ML AMP ONE (10:05)
[2019-01-16] MEDS ORDERED: TRANEXAMIC ACID 1,000 MG/10 ML VIAL ONE (10:05)
[2019-01-16] MEDS ORDERED: SODIUM CHLORIDE 0.9% 100 ML BAG ONE (10:05)
[2019-01-16] MEDS ORDERED: KETAMINE 10 MG/ML 20 ML VIAL ONE (10:05)
[2019-01-16] MEDS ORDERED: MIDAZOLAM 2 MG/2 ML VIAL ONE (10:05)
[2019-01-16] MEDS ORDERED: ceFAZolin 3,000 MG in SODIUM CHLORIDE 0.9% IRRIGATIO 3,000 ML IRRIGATION ONE (10:43)
[2019-01-16] MEDS ORDERED: ROPIVACAINE 246.25 MG, EPINEPHrine 0.5 MG, KETOROLAC 30 MG, cloNIDine HCL/PF 80 MCG, WA... MISCELLANE ONE ×5 (11:04)
[2019-01-16] MEDS: ROPIVACAINE 246.25 MG, EPINEPHrine 0.5 MG, KETOROLAC 30 MG, WATER FOR INJECTION,STERILE... MISCELLANE ONE ×8 (11:08→11:15)
[2019-01-16] MEDS ORDERED: LACTATED RINGERS 1,000 ML IV ONE ×2 (11:21)
[2019-01-16] MEDS ORDERED: ROPIVACAINE 1,100 MG, SODIUM CHLORIDE 0.9% 500 ML 330 ML MISCELLANE PRN ×2 (11:36)
--- NOTE | 2019-01-16 12:08 | P.OP ---
Date of Procedure: 01/16/19 Preoperative Diagnosis: Left knee osteoarthritis Postoperative Diagnosis: Left knee osteoarthritis Procedure(s) Performed: Left total knee arthroplasty Implants: 1. Depuy attune size 5 narrow left cruciate retaining cemented femur 2. Depuy attune size 4 fixed bearing cemented tibial baseplate 3. Depuy attune size 5 fixed bearing cruciate retaining 5 mm polyethylene tibial insert 4. Depuy attune 35 mm all polyethylene cemented patella Anesthesia: regional (Adductor canal catheter), local, spinal Surgeon: Louis Salazar Strategic Planning Analyst #1: Mason Solis Estimated Blood Loss (ml): 50 Pathology: other (Bone) Condition: stable Disposition: PACU Indications for Procedure: 53-year-old patient seen with symptomatic left knee osteoarthritis. After having treatment options discussed, she elected to proceed with total knee arthroplasty. Operative Findings: see description of procedure Description of Procedure: Patient was taken to the operative suite after having an adductor canal catheter placed by the department of anesthesia for postoperative pain management. Patient underwent a spinal anesthetic by the department of anesthesia. Patient was given preoperative IV intake antibiotics and TXA. A well-padded tourniquet was placed about the left lower extremity. The lower extremity was then prepped and draped in the normal sterile orthopedic fashion. The extremity was elevated, a tourniquet was insufflated to 300. A standard anterior incision was made sharply through skin. Dissection was taken down through the subcutaneous soft tissues down to the extensor mechanism. A medial arthrotomy was performed, patella was everted and knee was flexed. There was advanced osteoarthritis noted. I introduced my distal intramedullary femoral drill. I then introduced the distal femoral cutting jig. Yasir WORLEY secured the cutting jig with 2 pins. I held retractors in position while Yasir WORLEY performed the distal femoral resection through the guide area we now removed her distal femoral cutting guide. We now placed our 4-in-1 femoral cutting block and positioned and it was secured with 2 pins by Yasir WORLEY while I held the block in posit ion. The distal femoral finishing was now completed. A proximal tibial cutting guide was positioned. I held the guide in the appropriate position with both hands well Yasir WORLEY inserted stabilizing pins into the guide. Proximal tibial cut was made. We now placed a trial femoral component into position, along with an appropriate size tibial tray and insert. We now took the knee through range of motion and had full extension good flexion and good overall soft tissue balance noted. The patella was everted and stabilized with 2 towel clips held by Yasir WORLEY while I performed a flush with patellar quad tendon utilizing a fresh sawblade. We templated the patella, appropriate drill holes were made. An appropriate trial patella was positioned, knee was taken through full range of motion with the patella tracking very nicely. The trial patella was removed. Drill holes were made through the femoral component. All trial components were removed after marking off the appropriate rotation of the tibia. Retractors were now positioned along the proximal tibia. An appropriate keel punch was made with the appropriate size tibial guide by myself on Yasir WORLEY assisted by holding retractors. At this point appropriate size implants were chosen and opened. The joint was irrigated copiously with pulse lavage mechanical irrigation. The posterior capsule was infiltrated with local analgesic. The wound was irrigated with pulse lavage mechanical irrigation. We mixed antibiotic methylmethacrylate. We placed the knee into flexion. We placed multiple retractors assisted by Yasir WORLEY to expose the proximal tibia. Once the methyl methacrylate was ready, the tibial component was cemented into place removing any excess methylmethacrylate form by both myself and Yasir WORLEY. The femoral component was cemented into place removing the removing any excess methylmethacrylate performed by both myself and Yasir WORLEY. We then inserted the appropriate size polyethylene tibial insert. We made sure that it was locked into position. We took the knee into full extension, and then back in a flexion making sure we had removed any excess methylmethacrylate. The patellar component was then cemented down and secured with clamp. Excess methylmethacrylate removed. We kept the knee in full extension, patellar clamp in position until methylmethacrylate had hardened. Once it had hardened the patellar clamp was removed. The knee was taken through full range of motion. The patella tracked nicely. There was good soft tissue balancing. The tourniquet was now released. Additional hemostasis was achieved via electrocautery. A second gram of TXA was given. The wound again was irrigated with pulse lavage mechanical irrigation. The superficial soft tissues were infiltrated local analgesic. The extensor mechanism was repaired with Vicryl. We checked the repair with range of motion and it was stable. The subcutaneous soft tissues were repaired with Vicryl in layers. The skin was approximated with pernio/Dermabond. Sterile dressings were applied followed by loose web roll and Walter bandage. The patient was transferred to a bed, and taken to recovery in stable and satisfactory condition. Yasir WORLEY assisted with this complex procedure.
[2019-01-16] MEDS ORDERED: HYDROmorphone 1 MG/ML 1 ML SYRINGE IVP PRN (12:09)
[2019-01-16] MEDS ORDERED: ONDANSETRON 4 MG/2 ML VIAL IVP PRN (12:09)
[2019-01-16] MEDS ORDERED: NALOXONE 0.4 MG/ML 1 ML VIAL IV PRN (12:09)
[2019-01-16] MEDS ORDERED: HYDROmorphone 0.5 MG/0.5 ML SYRINGE IVP PRN ×2 (12:09)
[2019-01-16] MEDS ORDERED: HYDROcodone/APAP 5-325MG 1 EACH TAB PO PRN (12:09)
--- NOTE | 2019-01-16 12:51 | XR ---
EXAMINATION TYPE: XR knee limited LT DATE OF EXAM: 01/16/2019 COMPARISON: NONE HISTORY: 53-year-old female evaluation for postoperative abnormality and alignment TECHNIQUE: 2 views FINDINGS: Images show placement of left total knee arthroplasty. Both distal femoral and proximal tibial compon ents of the prosthesis are well seated without periprosthetic fracture. Anterior soft tissue swelling as well as soft tissue air and intra-articular air with joint effusion. Alignment grossly anatomic. IMPRESSION: Uncomplicated postoperative appearance left total knee arthroplasty.
[2019-01-16] MEDS: LACTATED RINGERS 1,000 ML IV SCH ×2 (13:53→22:06)
[2019-01-16 16:01] VITALS: BMI 44.9
[2019-01-16] MEDS: HYDROcodone/APAP 5-325MG 1 EACH TAB PO PRN (17:59)
[2019-01-16] MEDS: ceFAZolin IN SWFI 2 GM/20 ML SYRINGE IVP SCH (20:39)
[2019-01-16] MEDS: ENOXAPARIN 30 MG/0.3 ML SYRINGE SQ SCH (20:39)
[2019-01-16] MEDS: traMADol 50 MG TAB PO PRN (20:42)
[2019-01-16] MEDS ORDERED: DOCUSATE 100 MG CAP PO PRN (20:46)
[2019-01-16] MEDS ORDERED: ATORVASTATIN 80 MG TAB PO SCH (21:00)
[2019-01-16] MEDS ORDERED: MELATONIN 5 MG TABLET PO SCH (21:00)
[2019-01-16] MEDS ORDERED: SENNOSIDES-DOCUSATE SODIUM 1 EACH TAB PO SCH (21:00)
[2019-01-16] MEDS ORDERED: ERGOCALCIFEROL 50,000 UNIT CAP PO SCH (21:00)
[2019-01-16] MEDS ORDERED: GABAPENTIN 100 MG CAP PO SCH (22:00)
[2019-01-16] MEDS: GABAPENTIN 100 MG CAP PO SCH (22:03)
[2019-01-17] MEDS: HYDROcodone/APAP 5-325MG 1 EACH TAB PO PRN ×3 (00:05→13:56)
[2019-01-17] MEDS ORDERED: ceFAZolin IN SWFI 2 GM/20 ML SYRINGE IVP ONE (04:00)
[2019-01-17] MEDS: traMADol 50 MG TAB PO PRN (04:37)
[2019-01-17] MEDS: ceFAZolin IN SWFI 2 GM/20 ML SYRINGE IVP SCH (04:45)
[2019-01-17] MEDS: ENOXAPARIN 30 MG/0.3 ML SYRINGE SQ SCH (08:11)
[2019-01-17] MEDS: GABAPENTIN 100 MG CAP PO SCH (08:11)
[2019-01-17 08:20] LABS: Basophils % (A) 0 %; Eosinophils % (A) 0 %; HCT 38.7 % (34.0-46.0); HGB 12.7 gm/dL (11.4-16.0); Lymphocytes # (A) 1.8 k/uL (1.0-4.8); Lymphocytes % (A) 16 %; MCH 29.6 pg (25.0-35.0); MCHC 32.9 g/dL (31.0-37.0); MCV 89.9 fL (80.0-100.0); Mean Platelet Volume 7.2; Monocytes # (A) 1.1 k/uL (0-1.0); Monocytes % (A) 10 %; Neutrophils # (A) 8.1 k/uL (1.3-7.7); Neutrophils % (A) 72 %; Platelet Count 181 k/uL (150-450); RDW 13.6 % (11.5-15.5); WBC 11.2 k/uL (3.8-10.6)
[2019-01-17] MEDS ORDERED: SERTRALINE 100 MG TAB PO SCH (09:00)
[2019-01-17] MEDS ORDERED: MELOXICAM 7.5 MG TAB PO SCH (09:00)
[2019-01-17] MEDS ORDERED: METOPROLOL TARTRATE 25 MG TAB PO SCH (09:00)
[2019-01-17] MEDS ORDERED: LISINOPRIL 20 MG TAB PO SCH (09:00)
[2019-01-17] MEDS: LACTATED RINGERS 1,000 ML IV SCH (10:13)
--- NOTE | 2019-01-17 11:09 | P.PN ---
Progress Note - Text 01/17 655am 53-year-old female status post total knee replacement. Patient has an On-Q pump for postop pain control with a VAS of 7, she has not had good relief with the On-Q pump. Plan to continue On-Q pump infusion and use oral pain medication in combination to control the patient
--- NOTE | 2019-01-17 11:11 | P.ONQ ---
Anesthesiology Proc Note - PNB - Peripheral Nerve Block Performed Left Adductor Canal Infusion Time Out Performed: Yes Procedure Start Time: 08:54 Procedure Stop Time: 09:05 Indication: Acute Post-Operative Pain, Requested by physician Sedation Type: Sedate with meaningful contact maintained Preparation: Sterile Dressing Position: Supine Catheter: Indwelling Needle Types: On-Q Needle Size: 100mm (4") Needle Gauge: 21 Technique: Ultrasound (ropi .5% 20cc) Blood Aspirated: No Pain Paresthesia on Injection Noted: No Resistance on Injection: Normal Events: Uneventful and Well Tolerated
[2019-01-17 11:31] VITALS: BP 117/69; PULSE 81; RESP 16; TEMP 98.1
--- NOTE | 2019-01-17 13:09 | P.PN ---
Subjective Progress Note Date: 01/17/19 Principal diagnosis: Status post left total knee arthroplasty Patient evaluated today at bedside, she is resting comfortably. She's ambulated well with therapy. Her pain is well-controlled. She denies any chest pain or shortness of breath. Objective - Vital Signs Vital signs: Vital Signs Temp 98.1 F 01/17/19 07:00 Pulse 81 01/17/19 08:00 Resp 16 01/17/19 08:00 BP 117/69 01/17/19 07:00 Pulse Ox 96 01/16/19 19:56 Intake & Output 01/16/19 01/17/19 01/17/19 18:59 06:59 18:59 Intake Total 1801 450 Output Total 50 Balance 1751 450 Intake: IV 1801 Intake, IV Titration 450 Amount Lactated Ringers 1,000 ml 450 @ 100 mls/hr IV .Q10H NEHA Rx#:[id number] Output: Estimated Blood Loss 50 Other: # Voids 1 3 3 - Exam Left lower extremity: Incision is clean, dry, and intact. The exofin fusion tape is in good condition. There is minimal soft tissue swelling and ecchymosis surrounding the medial and lateral aspects of the incision. Calf is soft, no tenderness with palpation. Plantar flexion, dorsiflexion, EHL, FHL are intact. Sensory exam to light touch throughout the extremity is intact, dorsal pedis pulses 2+. - Labs CBC & Chem 7: 01/17/19 07:13 Labs: Abnormal Lab Results - Last 24 Hours (Table) 01/17/19 Range/Units 07:13 WBC 11.2 H (3.8-10.6) k/uL Neutrophils # 8.1 H (1.3-7.7) k/uL Monocytes # 1.1 H (0-1.0) k/uL Assessment and Plan Plan: Assessment: Postop day #1 status post left total knee arthroplasty Plan: Patient control, will continue oral medication GI and DVT prophylaxis, aspirin 81 mg twice a day Wound care instructions discussed Home physical therapy and nursing after discharge Medical recommendations Plan for discharge home today Time with Patient: Less than 30
--- NOTE | 2019-01-17 13:13 | P.DS ---
Providers Date of admission: 01/16/19 07:51 Expected date of discharge: 01/17/19 Attending physician: Louis Salazar Consults: 01/16/19 12:09 Consult Physician Routine Consulting Provider: Austin Meredith Consult Reason/Comments: Medical management Do you want consulting provider notified?: Yes [facility] Course: Date of admission: 01/16/2019 Date of discharge: 01/17/2019 Admission diagnosis: Status post left total knee arthroplasty Discharge diagnosis: Same Attending physician: Dr. Salazar Surgical procedures: Left total knee arthroplasty Brief history: Patient is a 53-year-old female with a history of progressive left knee osteoarthritis. At this point patient has failed conservative treatment measures and has opted to proceed with a elective left total knee arthroplasty. Hospital course: Details of patient's surgery can be found in operative report. Patient tolerated the procedure well and was subsequently transported to orthopedic floor. Patient's orthopeidc and medical care was provided daily. Patient had daily laboratory tests performed for evaluation of overall blood counts. Patient had daily physical therapy to include strengthening range of motion as well as education with walker ambulation. Patient had daily CPM usage as part of their physical therapy program. Patient was treated with Lovenox for their postoperative DVT prophylaxis during their inpatient stay. Patient was noted to have a relatively uneventful postoperative course. Patient reported satisfactory pain control with oral pain medications by postoperative day 0. Patient showed satisfactory progress with physical therapy. Patient moved steadily through the program and had no difficulty meeting the goals by postoperative day 1. Given patient's otherwise satisfactory course and having met physical therapy goals, plan is to discharge patient home on postoperative day 1. Discharge condition/disposition: Patient will be discharged home in stable condition. Discharge medications: Instructions are given on resumption of patient's normal daily medications per primary care recommendation, in addition patient will be prescribed [place] 7.5 mg/325 mg, tramadol 50 mg, aspirin 81 mg, Colace 100 mg. Discharge instructions: 1. Wound care and infection precautions, keep incision dry and covered while showering, no lotions, creams, moisturizers. No soaking, tubs, pools, hottubs. Do not scrub over the incision. 2. Weight-bear as tolerated with walker / cane until follow-up. 3. Ice and elevate when necessary. Do not exceed 20 minutes per hour with ice pack. 4. Utilize compression sleeve until seen at first follow up appointment. 5. Visiting nursing care. 6. Home physical therapy including home CPM. 7. Pain meds and anticoagulants per prescription. 8. Pain medication has potential to cause constipation. Increase oral fluid and fiber intake. Contact primary care provider if you have not had a bowel movement within 48 hours after discharge 9. No anti-inflammatory medication until discussed at first post operative visit, this including Motrin, Aleve, Mobic, Diclofenac. 10. Follow up in office at 2 weeks postop with Yasir Solis PA-C 11. Follow up with your primary care doctor 7-10 days after discharge. 12. Contact [facility] with any questions, . Procedures: Left total knee arthroplasty Patient Condition at Discharge: Good Plan - Discharge Summary Discharge Rx Participant: No New Discharge Prescriptions: New Aspirin [Adult Low Dose Aspirin EC] 81 mg PO BID #60 tablet. Docusate [Colace] 100 mg PO DAILY #30 capsule HYDROcodone/APAP 7.5-325MG [[place] 7.5] 1 - 2 each PO Q6HR PRN #40 tab PRN Reason: Pain traMADol HCl [Ultram] 50 mg PO Q6H PRN #28 tab PRN Reason: Pain No Action Sertraline HCl 100 mg PO DAILY Melatonin 5 mg PO HS Benazepril [Lotensin] 20 mg PO DAILY Albuterol Nebulized (Conc) [Ventolin Nebulized (Conc)] 2.5 mg INHALATION RT- QID PRN PRN Reason: Shortness Of Breath Atorvastatin [Lipitor] 80 mg PO HS Albuterol Inhaler [Ventolin Hfa Inhaler] 1 - 2 puff INHALATION RT-Q6H PRN PRN Reason: Shortness Of Breath rOPINIRole HCL 0.5 mg PO HS Gabapentin [Neurontin] 200 mg PO HS@2200 Gabapentin [Neurontin] 100 mg PO BID Metoprolol Tartrate [Lopressor] 25 mg PO DAILY Ibuprofen 200 mg PO DAILY Docusate [Colace] 100 mg PO DAILY PRN PRN Reason: Constipation Ergocalciferol [Vitamin D2] 50,000 unit PO MO Discharge Medication List Albuterol Nebulized (Conc) [Ventolin Nebulized (Conc)] 2.5 mg INHALATION RT-QID PRN 07/14/14 [History] Benazepril [Lotensin] 20 mg PO DAILY 07/14/14 [History] Melatonin 5 mg PO HS 07/14/14 [History] Sertraline HCl 100 mg PO DAILY 07/14/14 [History] Albuterol Inhaler [Ventolin Hfa Inhaler] 1 - 2 puff INHALATION RT-Q6H PRN 06/20/18 [History] Atorvastatin [Lipitor] 80 mg PO HS 06/20/18 [History] Gabapentin [Neurontin] 100 mg PO BID 06/20/18 [History] Gabapentin [Neurontin] 200 mg PO HS@2200 06/20/18 [History] rOPINIRole HCL 0.5 mg PO HS 06/20/18 [History] Metoprolol Tartrate [Lopressor] 25 mg PO DAILY 06/27/18 [History] Docusate [Colace] 100 mg PO DAILY PRN 01/11/19 [History] Ibuprofen 200 mg PO DAILY 01/11/19 [History] Ergocalciferol [Vitamin D2] 50,000 unit PO MO 01/16/19 [History] Aspirin [Adult Low Dose Aspirin EC] 81 mg PO BID #60 tablet.dr 01/17/19 [Rx] Docusate [Colace] 100 mg PO DAILY #30 capsule 01/17/19 [Rx] HYDROcodone/APAP 7.5-325MG [[place] 7.5] 1 - 2 each PO Q6HR PRN #40 tab 01/17/19 [Rx] traMADol HCl [Ultram] 50 mg PO Q6H PRN #28 tab 01/17/19 [Rx] Follow up Appointment(s)/Referral(s): [facility], [NON-STAFF] - Linda De Leon MD [Primary Care Provider] - 01/24/19 10:45 am Mason Solis PAC [PHYSICIAN ASSISTANT SALES DIRECTOR] - 02/01/19 1:30 pm Patient Instructions/Handouts: *Surgery [facility] - On-Q Pain Pump Discharge Instructions, Knee Replacement (DC) Activity/Diet/Wound Care/Special Instructions: Orthopedic Discharge Instructions: 1. Wound care and infection precautions, keep incision dry and covered while showering, no lotions, creams, moisturizers. No soaking, pools, hot tubs. Do not scrub over incision. 2. Weight-bear as tolerated with walker / cane until follow-up. 3. Ice and elevate when necessary. Do not exceed 20 minutes per hour with ice pack. 4. Utilize compression sleeve until seen at first follow up appointment. 5. Pain meds and anticoagulants per prescription. 6. Pain medication has potential to cause constipation. Increase oral fluid and fiber intake. Contact primary care provider if you have not had a bowel movement within 48 hours after discharge. 7. No anti-inflammatory medication until discussed at first post operative visit, this including Motrin, Aleve, Mobic, Diclofenac. 8. Follow up in office at 2 weeks postop with Yasir Solis PA-C 9. Follow up with your primary care doctor 7-10 days after discharge. 10. Contact [facility] with any questions, [phone]. 11. *Please call [employer] once home to arrange delivery of continuous passive motion (CPM) machine [phone] Discharge Disposition: HOME WITH HOME HEALTH SERVICES
--- NOTE | 2019-01-17 14:20 | P.CONS ---
History of Present Illness - Reason for Consult Consult date: 01/17/19 Medical management of mitral medical problems including hypertension and ob - Chief Complaint Admitted for left total arthroplasty - History of Present Illness Patient is a 53-year-old female with a known history of hypertension, hyperlipidemia, upper to sleep apnea on CPAP at home, COPD and morbid obesity as well as advanced degenerative joint disease was admitted to the hospital for left total knee arthroplasty secondary to worsening osteoarthritis and failed conservative management. Patient tolerated the procedure very well. No complaints of chest pain or shortness of breath. No fever no chills. No headache or dizziness or lightheadedness. Pain is fairly controlled. No fever no chills. No nausea vomiting or diarrhea. Review of Systems Constitutional: Patient denies any fever or chills . No generalized weakness or weight loss. Abdomen: Patient denied nausea vomiting and diarrhea and abdominal pain. Cardiovascular: Patient denies any chest pain or short of breath no palpitations. Respiratory: patient denied any cough is from production. No shortness of breath Neurologic: Patient denied any numbness or tingling headache. Musculoskeletal: Patient denies any complaints of joint swelling or deformity.left knee soreness Skin: Negative Psychiatric: Negative Endocrine: No heat or cold intolerance. No recent weight gain. Genitourinary: No dysuria or hematuria. All other 14 point ROS negative except the above . Past Medical History Past Medical History: Heart Failure, COPD, Diabetes Mellitus, Hyperlipidemia, Hypertension, Osteoarthritis (OA), Pneumonia, Sleep Apnea/CPAP/BIPAP Additional Past Medical History / Comment(s): Neuropathy bilateral legs, Restless Leg Syndrome, CPAP use, hx CHF X1 early 1999's, hx pneumonia X2, last 10 yrs ago, "borderline Diabetic, not on any medications, not checking sugars or doing anything for it.", edema eliza legs History of Any Multi-Drug Resistant Organisms: None Reported Past Surgical History: Section, Joint Replacement, Tubal Ligation Additional Past Surgical History / Comment(s): cleft lip and palate, ELIZA carpal tunnel, rt knee replacement Past Anesthesia/Blood Transfusion Reactions: No Reported Reaction, Family History of Problems w/ Anesthesia Additional Past Anesthesia/Blood Transfusion Reaction / Comm: sister has "trouble coming out of anesthesia" Past Psychological History: Anxiety, Depression Smoking Status: Current every day smoker Past Alcohol Use History: Rare Additional Past Alcohol Use History / Comment(s): Has been smoking 35 yrs, 1/2 PPD or less. Past Drug Use History: None Reported - Past Family History Mother Family Medical History: Deep Vein Thrombosis (DVT) Sister(s) Family Medical History: Cancer Additional Family Medical History / Comment(s): Breast cancer with Mets Brother(s) Family Medical History: Diabetes Mellitus, Hyperlipidemia, Hypertension Additional Family Medical History / Comment(s): Pacemaker Medications and Allergies Home Medications Medication Instructions Recorded Confirmed Type Albuterol Nebulized (Conc) 2.5 mg INHALATION RT-QID PRN 07/14/14 01/16/19 History [Ventolin Nebulized (Conc)] Benazepril [Lotensin] 20 mg PO DAILY 07/14/14 01/16/19 History Melatonin 5 mg PO HS 07/14/14 01/16/19 History Sertraline HCl 100 mg PO DAILY 07/14/14 01/16/19 History Albuterol Inhaler [Ventolin Hfa 1 - 2 puff INHALATION RT-Q6H PRN 06/20/18 01/16/19 History Inhaler] Atorvastatin [Lipitor] 80 mg PO HS 06/20/18 01/16/19 History Gabapentin [Neurontin] 100 mg PO BID 06/20/18 01/16/19 History Gabapentin [Neurontin] 200 mg PO HS@2200 06/20/18 01/16/19 History rOPINIRole HCL 0.5 mg PO HS 06/20/18 01/16/19 History Metoprolol Tartrate [Lopressor] 25 mg PO DAILY 06/27/18 01/16/19 History Docusate [Colace] 100 mg PO DAILY PRN 01/11/19 01/16/19 History Ibuprofen 200 mg PO DAILY 01/11/19 01/16/19 History Ergocalciferol [Vitamin D2 50,000 unit PO MO 01/16/19 01/16/19 History (DRISDOL)] Aspirin [Adult Low Dose Aspirin EC] 81 mg PO BID #60 tablet.dr 01/17/19 Rx Docusate [Colace] 100 mg PO DAILY #30 capsule 01/17/19 Rx HYDROcodone/APAP 7.5-325MG [[place] 1 - 2 each PO Q6HR PRN #40 tab 01/17/19 Rx 7.5] traMADol HCl [Ultram] 50 mg PO Q6H PRN #28 tab 01/17/19 Rx Allergies Allergy/AdvReac Type Severity Reaction Status Date / Time morphine Allergy Unknown Verified 01/16/19 12:46 Physical Exam Vitals: Vital Signs Temp Pulse Resp BP Pulse Ox 01/17/19 08:00 81 16 01/17/19 07:00 98.1 F 81 16 117/69 01/16/19 19:56 97.8 F 72 19 139/73 96 01/16/19 19:38 96 01/16/19 15:30 61 137/74 01/16/19 15:15 60 137/84 01/16/19 15:00 64 136/82 01/16/19 14:45 57 L 123/73 01/16/19 14:30 56 L 124/83 01/16/19 14:15 60 117/74 Intake and Output 01/16/19 01/17/19 01/17/19 22:59 06:59 14:59 Intake Total 450 Balance 450 Intake: Intake, IV Titration 450 Amount Lactated Ringers 1,000 ml 450 @ 100 mls/hr IV .Q10H [facility] Rx#:[id number] Other: # Voids 3 3 PHYSICAL EXAMINATION: Patient is lying in the bed comfortably, no acute distress, awake alert and oriented.. HEENT: Normocephalic. Neck is supple. Pupils reactive. Nostrils clear. Oral cavity is moist. Ears reveal no drainage. Neck reveals no JVD, carotid bruits, or thyromegaly. CHEST EXAMINATION: Trachea is central. Symmetrical expansion. Bibasilar diminished air entry. Lung sevilla clear to auscultation and percussion. CARDIAC: Normal S1, S2 with no gallops. No murmurs ABDOMEN: Soft. Bowel sounds normal. No organomegaly. No abdominal bruits. Extremities: reveal no edema. No clubbing or cyanosis Neurologically awake, alert, oriented x3 with well-coordinated movements. No focal deficits noted Skin: No rash or skin lesions. Psychiatric: Coperative. Nonsuicidal Musculoskeletal: No joint swelling or deformity. Left knee anterior surgical site intact. Results CBC & Chem 7: 01/17/19 07:13 Labs: Abnormal Lab Results - Last 24 Hours (Table) 01/17/19 Range/Units 07:13 WBC 11.2 H (3.8-10.6) k/uL Neutrophils # 8.1 H (1.3-7.7) k/uL Monocytes # 1.1 H (0-1.0) k/uL Assessment and Plan Assessment: Status post left total knee arthroplasty due to advanced degenerative joint disease. Postoperative day 1 Hypertension controlled now. We will start back on home medications upon discharge. Diabetes type 2. Borderline. Currently patient is not on any medications Hyperlipidemia Objective sleep apnea on CPAP at home Osteoarthritis of multiple joints Restless leg syndrome History of CHF ejection fraction unknown. Anxiety/depression Morbid obesity BMI 44.1 DVT prophylaxis Plan: Patient be continued on pain management and bowel regimen. Continue with DVT prophylaxis as per orthopedic surgery.. Encourage ambulation and incentive spirometry. Blood pressure is not elevated this time and blood pressure medications have been held. Patient admits to resume back on her home medica tions, benazepril and metoprolol. We will continue the current management. Further recommendations based on the clinical course. Patient was recommended to follow with her PCP next 3-5 days upon discharge.. Thank you for your consult. Time with Patient: Greater than 30
== END 2019-01-17 14:25 | disposition home health service (06) | DRG 470 ==
LOC: 2ORMAIN 07:51 → 4SSUR 12:30
PROVIDERS: ADMIT Orthopaedic Surgery; ATTEND Orthopaedic Surgery
PROC: 0SRD0J9 Replacement of Left Knee Joint with Synthetic Substitute, Cemented, Open Approach (ICD-10-PCS; principal; 2019-01-16 10:00)
DX: M17.12 Unilateral primary osteoarthritis, left knee (principal); Z68.41 Body mass index [BMI] 40.0-44.9, adult; E11.40 Type 2 diabetes mellitus with diabetic neuropathy, unspecified; I11.0 Hypertensive heart disease with heart failure; I50.9 Heart failure, unspecified; E66.01 Morbid (severe) obesity due to excess calories; G25.81 Restless legs syndrome; I45.10 Unspecified right bundle-branch block; E78.5 Hyperlipidemia, unspecified; E03.9 Hypothyroidism, unspecified; J44.9 Chronic obstructive pulmonary disease, unspecified; F32.9 Major depressive disorder, single episode, unspecified; F41.9 Anxiety disorder, unspecified; E78.00 Pure hypercholesterolemia, unspecified; G47.33 Obstructive sleep apnea (adult) (pediatric); F17.210 Nicotine dependence, cigarettes, uncomplicated; Z71.6 Tobacco abuse counseling; Z79.82 Long term (current) use of aspirin; Z79.899 Other long term (current) drug therapy; Z98.51 Tubal ligation status; Z98.891 History of uterine scar from previous surgery; Z96.651 Presence of right artificial knee joint; Z99.89 Dependence on other enabling machines and devices; Z87.01 Personal history of pneumonia (recurrent); Z87.730 Personal history of (corrected) cleft lip and palate; Z82.49 Family history of ischemic heart disease and other diseases of the circulatory system; Z83.2 Family history of diseases of the blood and blood-forming organs and certain disorders involving the immune mechanism; Z80.3 Family history of malignant neoplasm of breast; Z83.3 Family history of diabetes mellitus; Z83.49 Family history of other endocrine, nutritional and metabolic diseases
CPT/HCPCS: 85025; 88300; 94760

== ENCOUNTER → 2019-11-21 | Outpatient (CLI) | payer OTHER ==
--- NOTE | 2019-11-21 11:59 | MM ---
Reason for exam: screening (asymptomatic). Last mammogram was performed 1 year and 6 months ago. History: Patient is postmenopausal. Family history of breast cancer in sister at age 32. Physical Findings: A clinical breast exam by your physician is recommended on an annual basis and results should be correlated with mammographic findings. MG Screening Mammo w CAD Bilateral CC and MLO view(s) were taken. Prior study comparison: May 24, 2018, bilateral MG screening mammo w CAD. May 12, 2016, bilateral MG screening mammo w CAD. The breast tissue is heterogeneously dense. This may lower the sensitivity of mammography. There are benign appearing round calcifications bilaterally. There is no discrete abnormality. ASSESSMENT: Benign, BI-RAD 2 RECOMMENDATION: Routine screening mammogram of both breasts in 1 year.
== END | disposition home or self-care (01) ==
LOC: RADMAMWWP 09:38
PROVIDERS: ATTEND Family Medicine
DX: Z12.39 Encounter for other screening for malignant neoplasm of breast (principal)
CPT/HCPCS: 77067

== ENCOUNTER → 2020-09-17 | Outpatient (CLI) | payer MEDICARE, OTHER ==
--- NOTE | 2020-09-17 10:43 | XR ---
EXAMINATION TYPE: XR chest 2V DATE OF EXAM: 09/17/2020 COMPARISON: 07/14/2014 HISTORY: 55-year-old female with chills, shortness of breath TECHNIQUE: Frontal and lateral views FINDINGS: Heart normal size. Aorta and pulmonary vasculature within normal limits. Mild interstitial prominence has a chronic appearance. No micheal consolidation or pleural effusion. IMPRESSION: Chronic appearing changes. No definite acute process.
--- NOTE | 2020-09-17 10:50 | CT ---
EXAMINATION TYPE: CT brain wo con DATE OF EXAM: 09/17/2020 COMPARISON: None HISTORY: Headache CT DLP: 1227 mGycm Automated exposure control for dose reduction was used. FINDINGS: Ventricular system is midline. No acute hemorrhage or mass effect. Calvarium intact. Changes of chron ic mastoiditis noted. Nasal septal deviation seen. Orbits symmetric. Mild prominence of the basilar t ip. Craniocervical junction maintained. Sella turcica has a normal appearance. IMPRESSION: 1. No acute hemorrhage or mass effect. There is mild prominence of the basilar tip which could be cor related with MRA akhiok of [place] to exclude small aneurysm.
== END | disposition home or self-care (01) ==
LOC: RADCTMAIN 10:10
PROVIDERS: ATTEND Family Medicine
DX: J98.4 Other disorders of lung (principal); R11.0 Nausea; R51.9 Headache, unspecified
CPT/HCPCS: 70450; 71046

== ENCOUNTER → 2023-02-17 | Outpatient (CLI) | payer MEDICARE, OTHER ==
--- NOTE | 2023-02-18 20:50 | MR ---
EXAMINATION TYPE: MR brain wo/w con DATE OF EXAM: 02/17/2023 COMPARISON: NONE HISTORY: 57-year-old female R42 Dizziness, headaches. TECHNIQUE: Multiplanar, multisequence images of the brain and brainstem were acquired before and aft er administration of 11.5 mL IV Gadavist. Diffusion weighted imaging is performed. FINDINGS: No evidence for acute infarction, hemorrhage, mass, mass effect, midline shift, herniation, effacemen t of basal cisterns, or extra-axial fluid collection. The ventricles and sulci are age-appropriate. Major intracranial flow voids are intact. There is a dominant left vertebral artery. T2/FLAIR weighted sequences show mild scattered punctate bright signal foci within the deep white mat ter and periventricular region of both cerebral hemispheres numbering approximately 10 on each side. Midline structures demonstrate normal morphology. The craniocervical junction is normal. Post contrast images demonstrate no evidence of pathologic enhancement. Dural venous sinuses are pat ent. Moderate mucosal thickening within the ethmoid air cells and mild within the maxillary sinuses. Globe s are intact. Small amount of fluid within the bilateral mastoid air cells. Rightward nasal septal de viation. IMPRESSION: 1. Mild scattered burden of T2 bright white matter change, nonspecific. This could reflect chronic sm all vessel ischemic disease or sequela of chronic migraines. No acute intracranial abnormality or abn ormal intracranial enhancement seen. 2. Scattered mild to moderate chronic paranasal sinus disease. 3. A small amount of fluid within the bilateral mastoid air cells. Correlate for any mastoid pain to exclude mastoiditis.
== END | disposition home or self-care (01) ==
LOC: RADMRIMAIN 14:30
PROVIDERS: ATTEND Family Medicine
DX: J32.8 Other chronic sinusitis (principal); R42 Dizziness and giddiness; I67.82 Cerebral ischemia
CPT/HCPCS: 70553; A9585

== ENCOUNTER → 2023-02-23 | Outpatient (CLI) | payer MEDICARE, OTHER ==
--- NOTE | 2023-02-23 13:55 | US ---
EXAMINATION TYPE: US carotid duplex BILAT DATE OF EXAM: 02/23/2023 COMPARISON: NONE CLINICAL INDICATION: Female, 57 years old with history of R42 DIZZINESS AND GIDDINESS; Dizziness TECHNIQUE: Carotid duplex ultrasound examination. Indirect Doppler criteria was utilized. FINDINGS: EXAM MEASUREMENTS: RIGHT: Peak Systolic Velocity (PSV) cm/sec ----- Right CCA: 89.5 ----- Right ICA: 104.3 ----- Right ECA: 76.6 ICA/CCA ratio: 1.2 RIGHT: End Diastole cm/sec ----- Right CCA: 29.9 ----- Right ICA: 39.2 ----- Right ECA: 15.6 LEFT: Peak Systolic Velocity (PSV) cm/sec ----- Left CCA: 96.8 ----- Left ICA: 114.5 ----- Left ECA: 74.1 ICA/CCA ratio: 1.2 LEFT: End Diastole cm/sec ----- Left CCA: 32.1 ----- Left ICA: 32.1 ----- Left ECA: 22.5 VERTEBRALS (direction of flow): Right Vertebral: Antegrade Left Vertebral: Antegrade Rhythm: Normal PETROLOGY TEACHER NOTES: No significant stenosis seen IMPRESSION: Less than 50% stenosis of the carotid bifurcations. Criteria for Assigning % of Stenosis / Diameter reduction (Estimation based on the indirect measurements of the internal carotid artery velocities (ICA PSV). 1. Normal (no stenosis)=ICA PSV < 125 cm/s: ratio < 2.0: ICA EDV<40 cm/s. 2. Less than 50% stenosis=ICA PSV < 125 cm/s: ratio < 2.0: ICA EDV<40 cm/s. 3. 50 to 69% stenosis=ICA PSV of 125 to 230 cm/s: ration 2.0 ? 4.0: ICA EDV 40-100 cm/s. 4. Greater than 70% stenosis to near occlusion= ICA PSV > 230 cm/s: ratio > 4.0: ICA EDV > 100 cm/s. 5. Near occlusion= ICA PSV velocities may be low or undetectable: variable ratio and ICA EDV. 6. Total occlusion=unable to detect flow.
== END | disposition home or self-care (01) ==
LOC: RADUSWWP 10:48
PROVIDERS: ATTEND Family Medicine
DX: I65.23 Occlusion and stenosis of bilateral carotid arteries (principal); R42 Dizziness and giddiness
CPT/HCPCS: 93880

== ENCOUNTER → 2023-08-02 | Outpatient (CLI) | payer MEDICARE, OTHER ==
--- NOTE | 2023-08-03 09:30 | CTL ---
EXAMINATION TYPE: CT Low Dose Lung DATE OF EXAM ORDERED: 08/02/2023 HISTORY: . Lung cancer screening CT DLP: 95.[address] CTDI: 2.6 mGy Automated exposure control for dose reduction was used. SCREENING VISIT: COMPARISON: 11/15/2010 TECHNIQUE: Low dose computed tomography scan was performed through the chest at 1 mm thick sections a nd reconstructed images in multiple planes at 1 mm and [address] DIAGNOSTIC QUALITY: Satisfactory FINDINGS: There is paraseptal and centrilobular emphysematous changes. There are subpleural less than 5 mm nodules involving bilateral lung apices. No consolidation or pleural effusion. No pneumothorax. No pleural or parenchymal calcifications. No pathologic adenopathy. Atherosclerotic change of the aorta with no evidence of aneurysm. There is calcification involving th e aortic valve. Trace of pericardial fluid. Heart size normal. Small hiatal hernia. Hypertrophic and degenerative changes of the spine. Calcification is partially included in the [id number] near the gallbladder fossa. IMPRESSION: 1. COPD with subcentimeter benign-appearing pulmonary nodules 2. Coronary artery calcification and calcification in the aortic valve. CT LUNG RAD AND CT CHEST RECOMMENDATION: Lung-Rad 2 Benign Appearance or Behavior: Continue annual sc reening with LDCT in 12 months.
== END | disposition home or self-care (01) ==
LOC: RADCTMAIN 18:34
PROVIDERS: ATTEND Family Medicine
DX: Z12.2 Encounter for screening for malignant neoplasm of respiratory organs (principal); J44.9 Chronic obstructive pulmonary disease, unspecified; F17.210 Nicotine dependence, cigarettes, uncomplicated; I25.10 Atherosclerotic heart disease of native coronary artery without angina pectoris; R91.8 Other nonspecific abnormal finding of lung field
CPT/HCPCS: 71271

== ENCOUNTER → 2025-02-16 | Outpatient (CLI) | payer MEDICARE, OTHER ==
--- NOTE | 2025-02-18 12:55 | CTL ---
EXAMINATION TYPE: CT Low Dose Lung DATE OF EXAM: 02/16/2025 9:37 AM COMPARISON: 08/02/2023 SCREENING VISIT: Subsequent CT DIAGNOSTIC QUALITY: Satisfactory CLINICAL INDICATION: Female, 59 years old with history of Z12.2, F17.210 NICOTINE DEPENENCE, Current smoker, 1 ppd x 40 years, COPD, Lung cancer screening, History of tobacco use. TECHNIQUE: Low dose computed tomography scan was performed through the chest at 1 mm thick sections a nd reconstructed images in the coronal plane at 1 mm thick sections. Contrast used: mL of , (none if empty) Oral contrast used: (none if empty) CT DLP: 86.80 mGycm, Automated exposure control for dose reduction was used. CT CTDI: 2.4 mGy, Automated exposure control for dose reduction was used. FINDINGS: LUNG NODULES: Present, detailed below: 1. There is a 0.4 cm pleural-based density posterior lateral right upper lung field. Series 4 image 7 3. 2. There is a 0.5 cm nodular density posterior lateral right upper lung field. Series 4 image 67. 3. There is a 0.3 cm nodule peripheral left midlung. Series 4 image 152r LUNGS: COPD: Severity: Mild Fibrosis: Severity: None Lymph nodes: None Other findings: None RIGHT PLEURAL SPACE: Effusion: None Calcification: None Thickening: None Pneumothorax: None LEFT PLEURAL SPACE: Effusion: None Calcification: None Thickening: None Pneumothorax: None HEART: Other: Ascending thoracic aorta at the level the main pulmonary artery measures 3.3 cm. The main pul monary artery at the bifurcation measures 2.8 cm. Heart Size: Normal Coronary calcification: Mild coronary artery calcifications present. Pericardial effusion: None OTHER FINDINGS: Upper abdomen: Normal Bony thorax: Normal Supraclavicular region: Normal IMPRESSION: 1. No suspicious changes. Stable appearing nodules FOLLOW UP CT CHEST RECOMMENDATION: Low dose CT chest one year CT LUNG RAD: Lung-Rad 2 Benign Appearance or Behavior [facility], Workstation: [id number], 02/18/2025 12:53 PM
== END | disposition home or self-care (01) ==
LOC: RADCTMAIN 08:44
PROVIDERS: ATTEND Family Medicine
DX: Z12.2 Encounter for screening for malignant neoplasm of respiratory organs (principal); F17.210 Nicotine dependence, cigarettes, uncomplicated; R91.8 Other nonspecific abnormal finding of lung field
CPT/HCPCS: 71271

== ENCOUNTER → 2025-03-23 | Outpatient (CLI) | payer MEDICARE, OTHER ==
--- NOTE | 2025-03-23 10:13 | MM ---
Reason for Exam: Screening (asymptomatic). Last mammogram was performed 5 year(s) and 4 month(s) ago. Patient History: Menarche at age 11. First Full-Term at age 19. Postmenopausal. Sister had breast cancer, age 32. Risk Values: Edna 5 year model risk: 2.8%. NCI Lifetime model risk: 13.2%. Prior Study Comparison: 05/12/2016 Bilateral Screening Mammogram, [facility]. 05/24/2018 Bilateral Screening Mammogram, [facility]. 11/21/2019 Bilateral Screening Mammogram, [facility]. Tissue Density: The breasts are heterogeneously dense, which may obscure small masses. Findings: Analyzed By CAD. There is no suspicious group of microcalcifications or new suspicious mass in either breast. Overall Assessment: Benign, BI-RAD 2 Management: Screening Mammogram of both breasts in 1 year. . Patient should continue monthly self-breast exams. A clinical breast exam by your physician is recommended on an annual basis. This exam should not preclude additional follow-up of suspicious palpable abnormalities. Note on Edna scores and lifetime risk: 1. A Edna score greater than 3% is considered moderate risk. If this is the case, consider specialist referral to assess eligibility for a risk reducing agent. 2. If overall lifetime risk for the development of breast cancer is 20% or higher, the patient may qualify for future screening with alternating mammogram and breast MRI. [facility], , 03/23/2025 10:10 AM. Electronically signed and approved by: James Gimenez M.D. Radiologis
== END | disposition home or self-care (01) ==
LOC: RADMAMWWP 09:45
PROVIDERS: ATTEND Family Medicine
DX: Z12.31 Encounter for screening mammogram for malignant neoplasm of breast (principal); R92.333 Mammographic heterogeneous density, bilateral breasts; Z78.0 Asymptomatic menopausal state; Z80.3 Family history of malignant neoplasm of breast
CPT/HCPCS: 77063; 77067